=== PATIENT | female | born 1945 | race Caucasian/White ===

== ENCOUNTER 2018-05-10 09:50 | Emergency (ER) | payer MEDICARE ==
[2018-05-10 10:15] VITALS: BP 183/82
--- NOTE | 2018-05-10 10:30 | UC ---
Knee Pain HPI - HPI Summary HPI Summary: 72 y/o female presents to the urgent care c/o left knee pain s/p walking and twisting her knee in the uneven pavement for the past 3 days. Pt reports she was in a tour to [facility] and she had to return home due to her knee pain. Pt states in the tour they were having long walks everyday. Since pavement is uneven in the towns she visited. She twisted her knee at times while going downhill. Left knee pain worsen everyday that force her to return home to have it check. She returned yesterday. Pain is sharp w/ walking and movement /10, associated w/ swelling. She has taking Ibuprofen PO 400mg PO to alleviate symptoms. Last dose taking this morning. Pt denies numbness or tingling sensation, calf pain, SOB, chest pain, palpitations, abdominal pain, N/V/D. - History of Current Complaint Chief Complaint: UCLowerExtremity Stated Complaint: LEFT KNEE PAIN Time Seen by Provider: 05/10/18 10:28 Hx Obtained From: Patient Onset/Duration: Gradual Onset, Lasting Weeks - 1, Still Present, Worse Since - yesterday Severity Initially: Mild Severity Currently: Moderate Pain Intensity: 8 Pain Scale Used: 0-10 Numeric Character: Sharp Aggravating Factor(s): Movement, Prolonged Standing, Stairs Alleviating Factor(s): Rest, Cold, OTC Meds Associated Signs And Symptoms: Positive: Swelling - mild. Negative: Bruising, Fever, Weakness, Numbness, Tingling Able to Bear Weight: Yes - Risk Factors Septic Arthritis Risk Factor: Negative Gout Risk Factor: Negative - Allergies/Home Medications Allergies/Adverse Reactions: Allergies Allergy/AdvReac Type Severity Reaction Status Date / Time codeine Allergy Intermediate Rash Verified 05/10/18 10:15 Home Medications: Home Medications Cholecalciferol CAP/TAB(NF) [Vitamin D3 CAP/TAB (NF)] 5,000 unit PO DAILY [History Confirmed 05/10/18] Loratadine 10 mg PO DAILY 05/10/18 [History Confirmed 05/10/18] PMH/Surg Hx/FS Hx/Imm Hx Previously Healthy: Yes - Pt denies PMHX - Surgical History Surgical History: Yes Surgery Procedure, Year, and Place: L wrist, back surgery - Social History Alcohol Use: Daily Substance Use Type: None Smoking Status (MU): Former Smoker Review of Systems Constitutional: Negative Skin: Negative Eyes: Negative ENT: Negative Respiratory: Negative Cardiovascular: Negative Gastrointestinal: Negative Genitourinary: Negative Motor: Negative Neurovascular: Negative Musculoskeletal: Decreased ROM - left knee, Other: - left knee pain s/p injury Neurological: Negative Psychological: Negative Is Patient Immunocompromised?: No All Other Systems Reviewed And Are Negative: Yes Physical Exam - Summary Physical Exam Summary: Vital Signs Reviewed: Yes General: well developed, well nourished old female sitting in the examining table w/o any apparent distress Eyes: Positive: Conjunctiva Clear - PERRLA, EOMI, fundi grossly normal ENT: Positive: Normal ENT inspection, Hearing grossly normal, Pharynx normal, TMs normal Neck: Positive: Supple, Nontender, No Lymphadenopathy Respiratory: Positive: Chest nontender, Lungs clear, Normal breath sounds, No respiratory distress Cardiovascular: Positive: RRR, No Murmur, Pulses Normal, Brisk Capillary Refill Abdomen Description: Positive: Nontender, No Organomegaly, Soft. Negative: CVA Tenderness (R), CVA Tenderness (L) Bowel Sounds: Positive: Present Musculoskeletal: Positive: Strength Intact, No Edema,LF Knee: Pt is able to bear weight and ambulate with limping. No surface trauma, mild soft tissue swelling, no obvious effusion. No overlying erythema or warmth. The L knee is without obvious asymmetry or deformity when compared with the R knee. Decreased ROM of LF knee due to pain. Point tendeness over the patella, no effusion or ballottement. No tenderness over the infrapatellar tendon. Point tenderness over the medial joint line, No tenderness over lateral tibial plateaus. No tenderness over the proximal fibular head, No tenderness, fullness or mass of the popliteal fossa. No quadriceps tenderness. No laxity of the ACL. PCL, MCL, or LCL. no collateral ligament laxity to valgus or varus stress. Negative Yari/Drawer sign. positive Umer. Distal motor and neurovascular status intact. Neurological Exam: Normal Psychological Exam: Normal Skin Exam: Normal Triage Information Reviewed: Yes Vital Signs: Initial Vital Signs Temp 98.7 F 05/10/18 10:09 Pulse 78 05/10/18 10:09 Resp 16 05/10/18 10:09 BP 183/82 05/10/18 10:09 Pulse Ox 100 05/10/18 10:09 Knee Pain Course/Dx - Course Course Of Treatment: 72 y/o female presents to the urgent care c/o left knee pain s/p walking and twisting her knee in the uneven pavement for the past 3 days. Pt reports she was in a tour to [facility] and she had to return home due to her knee pain. Pt states in the tour they were having long walks everyday. Since pavement is uneven in the towns she visited. She twisted her knee at times while going downhill. Left knee pain worsen everyday that force her to return home to have it check. She returned yesterday. Pain is sharp w/ walking and movement 04/06, associated w/ swelling. She has taking Ibuprofen PO 400mg PO to alleviate symptoms. Last dose taking this morning. Pt denies numbness or tingling sensation, calf pain, SOB, chest pain, palpitations, abdominal pain, N/ V/D. Hx obtained. LF knee X-ray ordered. Impression:No acute osseous injury observed, only chondrocalcinosis on both sides of left knee observed. Pt's knee immobilized Knee immobilizer. Pt Advised RICE. Avoid strenuous exercise or standing for long period of time. Pt strongly advised to f/u w/ Orthopedic Dr Reinoso for further management to r/o any meniscus tear. Pt Rx Narpoxen PO to alleviate symptoms. Pt's BP is elevated today advised to decrease salt in diet, monitor BP and f/u with PCP for further management. D/C instrcutions explained.PT understood and agreed with plan of care. Pt left clinic hemodynamically stable and ambulating - Differential Dx/Diagnosis Differential Diagnosis/HQI/PQRI: Bursitis, Contusion, Fracture (Closed), Gout, Patellofemoral Syndrome, Sprain, Strain, Tendonitis Provider Diagnoses: 1- left knee pain injury. 2- Left knee sprain. 3- left otto chondrocalcinosis. 4- Elevated BP w/o Hx of HTN Discharge - Sign-Out/Discharge Documenting (check all that apply): Patient Departure - D/c home All imaging exams completed and their final reports reviewed: Yes - Discharge Plan Condition: Stable Disposition: HOME Prescriptions: Naproxen TAB* [Naprosyn 250 mg TAB*] 250 mg PO Q8H PRN #30 tab PRN Reason: knee pain Patient Education Materials: Knee Sprain (ED), Osteoarthritis (ED), Low-Sodium Diet (ED) Forms: *Gen. Provider Communication Referrals: Curtis Reinoso MD [Medical Doctor] - 3 Days Marilou Tipton MD [Primary Care Provider] - 3 Days Additional Instructions: 1-Please take Naproxen as directed to alleviate pain and swelling. 2-Please apply ice, keep your knee immobilized with the knee immobilizer. Elevate your leg and avoid strenuous walking or exercise 3- Please f/u with Orthopedic Dr Reinoso in 3 days for further evaluation and treatment. 4-Your BP is elevated today. please decrease salt in your diet, monitor BP and if it continues to be elevated please f/u with your PCP for further management - Billing Disposition and Condition Condition: STABLE Disposition: Home
--- NOTE | 2018-05-10 11:10 | RAD ---
INDICATION: Acute left knee pain. TECHNIQUE: 4 views of the left knee were obtained. FINDINGS: The bones are in normal alignment. No joint effusion or fracture is seen. Joint spaces appear maintained. There is chondrocalcinosis in the medial and lateral compartments. IMPRESSION: 1. NO EVIDENCE FOR FRACTURE. 2. CHONDROCALCINOSIS.
== END 2018-05-10 11:52 | disposition home or self-care (01) ==
LOC: UCCORT 09:50
DX: S83.92XA Sprain of unspecified site of left knee, initial encounter (principal); X50.1XXA Overexertion from prolonged static or awkward postures, initial encounter; Y93.01 Activity, walking, marching and hiking; Y92.488 Other paved roadways as the place of occurrence of the external cause; M11.262 Other chondrocalcinosis, left knee; R03.0 Elevated blood-pressure reading, without diagnosis of hypertension; Z87.891 Personal history of nicotine dependence
CPT/HCPCS: 99203; G0463